=== PATIENT | female | born 1975 | race Caucasian/White ===

== ENCOUNTER → 2017-01-30 | Outpatient (CLI) | payer OTHER ==
[~2017-01-30] MED LIST: NORCO 5-325 TA1 EACH PO
== END ==
DX: Z12.31 Encounter for screening mammogram for malignant neoplasm of breast (principal)
CPT/HCPCS: G0202

== ENCOUNTER 2017-08-11 20:44 | Emergency (ER) | payer SELFPAY | END 2017-08-11 22:00 | disposition home or self-care (01) | LOC: ER1 20:44 | DX: M54.42 Lumbago with sciatica, left side (principal); G89.29 Other chronic pain; I10 Essential (primary) hypertension | CPT/HCPCS: 96374; 96375; 99283; J1100; J1885 ==